=== PATIENT | female | born 1975 | race Caucasian/White ===

== ENCOUNTER 2016-08-12 21:04 | Emergency (ER) | payer OTHER ==
[2016-08-12 21:36] LABS: ABSOLUTE BASOPHIL COUNT 0 /CUMM (0.0-0.2); ABSOLUTE EOSINOPHIL COUNT 0.3 /CUMM (0.0-0.7); ABSOLUTE GRANULOCYTE CT 5.7 /CUMM (1.4-6.5); ABSOLUTE LYMPH COUNT 3.3 /CUMM (1.2-3.4); ABSOLUTE MONOCYTE COUNT 0.6 /CUMM (0.10-0.60); BASOPHIL % 0.3 % (0.0-2.0); EOSINOPHIL % 3.3 % (0-5); GRANULOCYTE % 56.9 % (42.2-75.2); HEMATOCRIT 35.2 % (37-47); MEAN CORPUSCULAR HGB 29.2 PG (27.0-31.0); MEAN CORPUSCULAR VOLUME 85.9 FL (81.0-99.0); MEAN PLATELET VOLUME 7.9 FL (7.4-10.4); PLATELET COUNT 225 /CUMM (130-400); RBC DISTRIBUTION WIDTH 12.7 % (11.5-14.5)
--- NOTE | 2016-08-12 22:02 | ED CARDIAC/CP/PALPITATIONS ---
See Addendum History of Present Illness General Chief Complaint: Chest Pain Stated Complaint: CHEST HEAVINESS, INDIGESTION, NECK PAIN Source: patient Exam Limitations: no limitations Vital Signs & Intake/Output Vital Signs & Intake/Output Vital Signs Date Time Temp Pulse Resp B/P Pulse O2 O2 Flow FiO2 Ox Delivery Rate 08/12 2321 97.5 58 12 106/68 100 Room Air 08/12 2200 80 110/74 08/12 2130 Room Air 08/12 2112 110 22 153/107 ED Intake and Output 08/13 0000 08/12 1200 Intake Total 0 Output Total Balance 0 Intake, Oral 0 Patient 130 lb Weight Allergies Coded Allergies: No Known Allergies (08/12/16) Reconcile Medications No Known Home Medications Triage Note: PER PT CP ON AND OFF X 3 DAYS PER PT TODAY SINCE 1900 TRIED TO TAKE A WARM SHOWER BUT HR WAS 140 PT REPORTS PAIN TO CHEST NECK RT SIDE INTO BACK AND DOWN BOTH LEGS AND BILAT ARMS DENIES BCP OR SMOKING LMP 10 DAYS AGO Triage Nurses Notes Reviewed? yes Onset: Gradual Duration: waxing and waning Quality/Severity: moderate Location: substernal Radiation: jaw, neck Activities at Onset: none Prior Chest Pain/Card Workup: no prior cardiac workup : No Patient currently breastfeeds: No HPI: Patient is a 41-year-old female with an unremarkable past medical history who presents emergency room stating that for the past 3 days patient has had concerning waxing and waning symptoms of indigestion chest heaviness lightheaded sensation and radiation of pain and paresthesia to her jaw and bilateral arms. Patient also had associated symptoms of shortness of breath. Patient did have similar symptoms approximately 9 months ago followed up with primary care doctor with unremarkable findings and EKG findings. Patient states that the symptoms have waxed and waned and states that minimal activity does make worse. Denies any history of oral contraceptive use PE or DVT, recent travel recent surgery hemoptysis leg swelling. Patient has not taken any medications for symptoms. Denies any fever, chills, nausea vomiting. Denies any illicit drug use denies any significant family history of cardiac before the age of 50. Denies any smoking tobacco or alcohol use (VERONICA MAGDALENO,SHELBY) Past History Travel History Traveled to [place] past 21 day No Medical History Any Pertinent Medical History? none Neurological: NONE EENT: NONE Cardiovascular: NONE Respiratory: NONE Gastrointestinal: NONE Hepatic: NONE Renal: NONE Musculoskeletal: NONE Psychiatric: NONE Endocrine: NONE Surgical History Surgical History: non-contributory Psychosocial History What is your primary language Kazakh Tobacco Use: Never used Family History Hx Contributory? No (SHELBY NATH) Review of Systems Review of Systems Constitutional: Reports: no symptoms. EENTM: Reports: no symptoms. Respiratory: Reports: see HPI, short of breath. Cardiovascular: Reports: see HPI, chest pain. GI: Reports: no symptoms. Genitourinary: Reports: no symptoms. Musculoskeletal: Reports: no symptoms. Skin: Reports: no symptoms. Neurological/Psychological: Reports: see HPI, paresthesia. Hematologic/Endocrine: Reports: no symptoms. Immunologic/Allergic: Reports: no symptoms. All Other Systems: Reviewed and Negative (SHELBY NATH) Physical Exam Physical Exam General Appearance: well developed/nourished, no apparent distress, alert Cardiovascular: regular rate/rhythm Comments: Well-developed well-nourished person in no acute distress HEENT: Normal EENT exam, extraocular motion intact, no nystagmus. Pupils equally round and reactive to light and accommodation. Nose is atraumatic. External auditory canal and Tympanic membranes clear. Pharynx normal. No swelling or edema. Neck: Supple, no lymphadenopathy, normal range of motion without pain or tenderness Back: Nontender, no CVA tenderness. Cardiovascular: Regular rate and rhythms no murmurs rubs or gallops, normal JVP Respiratory: Chest nontender. No respiratory distress.breath sounds clear to auscultation bilaterally Abdomen: Soft, nontender nondistended, no appreciable organomegaly. Normal bowel sounds. No ascites Extremity: No edema, no calf tenderness to palpation, normal and equal pulses. Neuro: Alert oriented x3, motor sensory normal, cranial nerves II through XII grossly intact. Skin: No appreciable rash on exposed skin, skin is warm and dry. Psych: Mood and affect is normal, memory and judgment is normal. Core Measures ACS in differential dx? Yes Severe Sepsis Present: No Septic Shock Present: No (SHELBY NATH) Progress Differential Diagnosis: AMI, aortic dissection, atrial fibrillation, cholecystitis, CHF/pulm edema, costochondritis, hyperkalemia, hypovolemia, hyperthyroid, hyperventilation, intracranial hemorrhage, musculoskeletal pain, myocarditis, pancreatitis, pericarditis, pneumonia, pneumothorax, PSVT, pulmonary embolism, PUD/GERD, PVCs/PACs, respiratory failure, rib fracture, sepsis, unstable angina, V-fib/V-Tach, WPW syndrome Plan of Care: Orders Procedure Date/time Status TROPONIN LEVEL 08/13 129 Active EKG 08/13 129 Active TROPONIN LEVEL 08/12 2105 Complete HUMAN BETA HCG SCREEN 08/12 2105 Complete D-DIMER 08/12 2105 Complete COMPREHENSIVE METABOLIC PANEL 08/12 2105 Complete CBC WITHOUT DIFFERENTIAL 08/12 2105 Complete EKG 08/12 2104 Active Laboratory Tests 08/13/16 0140: Troponin I Pending 08/12/162124: Anion Gap 11, Estimated GFR > 60, BUN/Creatinine Ratio 18.6, Glucose 93, Calcium 9.2, Total Bilirubin 0.4, AST 14, ALT 17, Alkaline Phosphatase 39, Troponin I < 0.01, Total Protein 7.2, Albumin 4.2, Globulin 3.0, Albumin/Globulin Ratio 1.4, Total Beta HCG NEGATIVE, D-Dimer 444 H, CBC w Diff NO MAN DIFF REQ, RBC 4.10 L , MCV 85.9, MCH 29.2, RDW 12.7, MPV 7.9, Gran % 56.9, Lymphocytes % 33.2, Monocytes % 6.3, Eosinophils % 3.3, Basophils % 0.3, Absolute Granulocytes 5.7, Absolute Lymphocytes 3.3, Absolute Monocytes 0.6, Absolute Eosinophils 0.3, Absolute Basophils 0, PUBS MCHC 34.0 Upon initial examination patient was in no apparent distress however patient did have concerning cardiovascular symptoms. First set of cardiac enzymes was unremarkable on air sampling and monitoring noted to be normal sinus rhythm patient declined any medications when offered. Patient had an unremarkable EKG and d- dimer was elevated and which patient required CT scan angiogram showing no concern for pulmonary embolism. Patient will require second set of cardiac enzymes. Discussed disposition plan with patient and family and they agree. I' ll discuss handoff with Dr. Valiente. (SHELBY NATH) Diagnostic Imaging: Viewed by Me: Radiology Read, CT Scan. Radiology Impression: no acute abnormality Initial ED EKG: SINUS RHYTHM NOTED AT 97 BPM Hand-Off Endorsed To: JUAN LUIS VALIENTE MD Endorsed Time: 098 Pending: labs Comments: PATIENT: AVERY LEONARD PRESENT AGE: 41 PATIENT ACCOUNT NO: [id number] : 76 LOCATION: [facility] ORDERING PHYSICIAN: SHELBY MAGDALENO SERVICE DATE: 08/12/16 EXAM TYPE: CAT - CTA CHEST-PULMONARY EMBOLISM EXAMINATION: CT ANGIOGRAM OF THE CHEST WITH AND WITHOUT CONTRAST (CT PULMONARY ANGIOGRAM FOR PE) CLINICAL INFORMATION: Elevated d-dimer. COMPARISON: No pertinent prior studies are available for comparison. TECHNIQUE: Prior to contrast administration, noncontrast localization images were obtained. Subsequently, multidetector volumetric imaging was performed from the thoracic inlet to below the diaphragms following the administration of 75 mL Optiray 320 intravenous contrast. No contrast reaction reported Sagittal, coronal, and MIP oblique sagittal reformatted images were obtained on the CT workstation, uploaded to PACS, and reviewed. Total exam dose-length product 226 mGy-cm FINDINGS: QUALITY OF STUDY/CONTRAST BOLUS: Satisfactory. PULMONARY ARTERIES: No central or segmental pulmonary emboli. THORACIC AORTA: No aneurysm or dissection. LUNG: A calcified granuloma is present within the medial aspect of the left upper lobe. No suspicious pulmonary nodules are identified. No consolidation, pneumothorax, or emphysema. No bronchiectasis. PLEURA: No pleural effusion or pneumothorax. MEDIASTINUM: Normal heart size. No pericardial effusion. No hilar or mediastinal lymphadenopathy. No evidence of septal bowing or right heart strain. Thymic tissue is present anteriorly. CHEST WALL/AXILLA: No axillary or internal mammary lymphadenopathy. OSSEOUS STRUCTURES: There is mild degenerative spondylosis in the thoracic spine with minimal right convex thoracic curvature. No fracture or malalignment. No osseous lesions are identified. UPPER ABDOMEN: Unremarkable. No reflux of contrast into the hepatic veins to suggest elevated right heart pressures. IMPRESSION: 1. No acute pulmonary findings. No evidence of pulmonary venous thromboembolism. 2. 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 VTE: negative PATIENT: AVERY LEONARD PRESENT AGE: 41 PATIENT ACCOUNT NO: [id number] : 76 LOCATION: [facility] ORDERING PHYSICIAN: JUAN LUIS VALIENTE MD SERVICE DATE: 08/12/16 EXAM TYPE: RAD - XRY-PORTABLE CHEST XRAY EXAMINATION: XR PORTABLE CHEST CLINICAL INFORMATION: Chest pain. COMPARISON: None. TECHNIQUE: Portable view of the chest was obtained. FINDINGS: The lungs are well-expanded and clear without focal airspace consolidation. No pleural effusions or pneumothoraces are identified. Cardiomediastinal contours are within normal limits. Soft tissues are unremarkable. No acute osseous abnormality is identified. IMPRESSION: No acute cardiopulmonary abnormality. (SHELBY NATH) Departure Departure Disposition: HOME OR SELF CARE Condition: Stable Referrals: ROM LARA,JESSICA Mckenna (PCP/Family) Referred to [facility] as new patient No Additional Instructions: As discussed first thing tomorrow please follow up and establish Dr. Milan for cardiology evaluation. If symptoms worsen or if you develop a new concerning symptom return to the emergency room . Departure Forms: Customer Survey General Discharge Information Prescriptions: Current Visit Scripts No Known Home Medications (SHELBY NATH) Departure Clinical Impression Primary Impression: Chest pain Secondary Impressions: Shortness of breath PA/FOOD AND BEVERAGE MANAGER Co-Sign Statement Statement: ED Attending supervision documentation- [] I saw and evaluated the patient. I have also reviewed all the pertinent lab results and diagnostic results. I agree with the findings and the plan of care as documented in the PA's/FOOD AND BEVERAGE MANAGER's documentation. [x] I have reviewed the ED Record and agree with the PA's/FOOD AND BEVERAGE MANAGER's documentation. [] Additions or exceptions (if any) to the PAs/FOOD AND BEVERAGE MANAGER's note and plan are summarized below: [] (LARISA LARA,JUAN LUIS Smith) Critical Care Note Critical Care Note Critical Care Time: non-applicable (SHELBY NATH)
--- NOTE | 2016-08-12 22:45 | RADIOLOGY REPORT ---
EXAMINATION: XR PORTABLE CHEST CLINICAL INFORMATION: Chest pain. COMPARISON: None. TECHNIQUE: Portable view of the chest was obtained. FINDINGS: The lungs are well-expanded and clear without focal airspace consolidation. No pleural effusions or pneumothoraces are identified. Cardiomediastinal contours are within normal limits. Soft tissues are unremarkable. No acute osseous abnormality is identified. IMPRESSION: No acute cardiopulmonary abnormality.
--- NOTE | 2016-08-12 22:50 | CT SCAN REPORT ---
EXAMINATION: CT ANGIOGRAM OF THE CHEST WITH AND WITHOUT CONTRAST (CT PULMONARY ANGIOGRAM FOR PE) CLINICAL INFORMATION: Elevated d-dimer. COMPARISON: No pertinent prior studies are available for comparison. TECHNIQUE: Prior to contrast administration, noncontrast localization images were obtained. Subsequently, multidetector volumetric imaging was performed from the thoracic inlet to below the diaphragms following the administration of 75 mL Optiray 320 intravenous contrast. No contrast reaction reported Sagittal, coronal, and MIP oblique sagittal reformatted images were obtained on the CT workstation, uploaded to PACS, and reviewed. Total exam dose-length product 226 mGy-cm FINDINGS: QUALITY OF STUDY/CONTRAST BOLUS: Satisfactory. PULMONARY ARTERIES: No central or segmental pulmonary emboli. THORACIC AORTA: No aneurysm or dissection. LUNG: A calcified granuloma is present within the medial aspect of the left upper lobe. No suspicious pulmonary nodules are identified. No consolidation, pneumothorax, or emphysema. No bronchiectasis. PLEURA: No pleural effusion or pneumothorax. MEDIASTINUM: Normal heart size. No pericardial effusion. No hilar or mediastinal lymphadenopathy. No evidence of septal bowing or right heart strain. Thymic tissue is present anteriorly. CHEST WALL/AXILLA: No axillary or internal mammary lymphadenopathy. OSSEOUS STRUCTURES: There is mild degenerative spondylosis in the thoracic spine with minimal right convex thoracic curvature. No fracture or malalignment. No osseous lesions are identified. UPPER ABDOMEN: Unremarkable. No reflux of contrast into the hepatic veins to suggest elevated right heart pressures. IMPRESSION: 1. No acute pulmonary findings. No evidence of pulmonary venous thromboembolism. 2. 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 VTE: negative
[2016-08-13 02:33] VITALS: BP 111/74
[2016-08-13] MEDS ORDERED: IBUPROFEN800 M1 PO (02:43)
== END 2016-08-13 03:04 ==
LOC: ERH 21:04
PROVIDERS: Pediatrics
DX: R07.9 Chest pain, unspecified (principal); R06.02 Shortness of breath
CPT/HCPCS: 93005; 93010; 96374; J1885

== ENCOUNTER 2018-01-14 12:09 | Emergency (ER) | payer OTHER ==
[~2018-01-14] VITALS: Ht 170.2 cm; Wt 57.2 kg
[~2018-01-14 12:09] MED LIST: IBUPROFEN800 M1 PO
[2018-01-14 12:58] LABS: ABSOLUTE BASOPHIL COUNT 0 /CUMM (0.0-0.2); ABSOLUTE EOSINOPHIL COUNT 0.1 /CUMM (0.0-0.7); ABSOLUTE GRANULOCYTE CT 6.3 /CUMM (1.4-6.5); ABSOLUTE LYMPH COUNT 1.1 /CUMM (1.2-3.4); ABSOLUTE MONOCYTE COUNT 0.3 /CUMM (0.10-0.60); BASOPHIL % 0 % (0.0-2.0); EOSINOPHIL % 1.1 % (0-5); GRANULOCYTE % 80.5 % (42.2-75.2); HEMATOCRIT 38.1 % (37-47); MEAN CORPUSCULAR HGB 29.4 PG (27.0-31.0); MEAN CORPUSCULAR HGB CONC 34.2 G/DL (33.0-37.0); MEAN PLATELET VOLUME 8.2 FL (7.4-10.4); PLATELET COUNT 246 /CUMM (130-400); RBC DISTRIBUTION WIDTH 13.3 % (11.5-14.5); RED BLOOD CELL CT 4.44 /CUMM (4.20-5.40); WHITE BLOOD CELL COUNT 7.8 /CUMM (4.8-10.8)
--- NOTE | 2018-01-14 13:03 | ED GENERAL ADULT ---
History of Present Illness General Chief Complaint: General Adult Stated Complaint: JAW/NECK PAIN, HEART RACING AT TIMES X3DAYS Source: patient, family Exam Limitations: no limitations Vital Signs & Intake/Output Vital Signs & Intake/Output Vital Signs Date Time Temp Pulse Resp B/P B/P Pulse O2 O2 Flow FiO2 Mean Ox Delivery Rate 01/14 1500 98.0 64 18 122/78 98 Room Air 01/14 1223 97.5 98 15 127/89 97 Room Air Room Air Allergies Coded Allergies: No Known Allergies (01/14/18) Reconcile Medications No Known Home Medications Triage Note: PT TO ED FOR C/C OF L JAW PAIN THAT RADIATES TO L SIDE OF NECK AND INTO UPPER BACK IN BETWEEN SHOULDER BLADES. SINCE FRIDAY PT HAS HAD FATIGUE AND FRIDAY SOME NAUSEA AND THIS MORNING. ALSO REPORTS LIGHTHEADEDNESS AND SOME INTERMITTENT SOB. DENIES SMOKING OR SIGNIFICANT FAMILY HISTORY, NOT ON CONTROL. Triage Nurses Notes Reviewed? yes : No Patient currently breastfeeds: No HPI: Patient is a 42-year-old female with no significant past medical history who presents today with chest pain. She has a family history of ITP but no ischemic cardiac disease. She had a similar episode in August 2016 at which time her ED workup including ECG and troponin were unremarkable, and she followed up with cardiology (Dr. Stern) and underwent outpatient stress testing also with negative results. In regards to this episode, she reports that 5 days ago she spirits relatively acute onset of profound fatigue, which in the days to follow developed into central chest pressure, nausea, palpitations, and then today left -sided jaw tightness and palpitations. Triage ECG is nonischemic. Past History Travel History Traveled to [place] past 21 day No Medical History Any Pertinent Medical History? see below for history Neurological: NONE EENT: NONE Cardiovascular: NONE Respiratory: NONE Gastrointestinal: NONE Hepatic: NONE Renal: NONE Musculoskeletal: NONE Psychiatric: NONE Endocrine: NONE Blood Disorders: NONE Cancer(s): NONE SENIOR SOFTWARE ARCHITECT/Reproductive: NONE Surgical History Surgical History: non-contributory Psychosocial History What is your primary language Puerto Rican Tobacco Use: Never used ETOH Use: denies use Illicit Drug Use: denies illicit drug use Family History Family History, If Any: MOTHER Relation not specified for: Idiopathic thrombocytopenic purpura Hx Contributory? Yes Review of Systems Review of Systems Constitutional: Reports: see HPI. EENTM: Reports: no symptoms. Respiratory: Reports: see HPI, short of breath. Cardiovascular: Reports: see HPI, chest pain. GI: Reports: see HPI, nausea. Genitourinary: Reports: no symptoms. Musculoskeletal: Reports: neck pain. Skin: Reports: no symptoms. Neurological/Psychological: Reports: no symptoms. Hematologic/Endocrine: Reports: no symptoms. Immunologic/Allergic: Reports: no symptoms. All Other Systems: Reviewed and Negative Physical Exam Physical Exam General Appearance: well developed/nourished, no apparent distress, alert, anxious, comfortable Comments: HEENT: Inspection of the head reveals a normocephalic cranium with no signs of trauma. Ophtho: Extraocular muscles are intact and pupils are equal and reactive to light bilaterally with no afferent pupillary defect. The sclera are noninjected , and there is no obvious discharge. Neck: The trachea is midline, there is no obvious asymmetry or mass over the thyroid, and there is no midline cervical spine tenderness Respiratory: The lungs are clear and equal to auscultation bilaterally without wheezes, rales, or rhonchi. The patient exhibits no signs of labored breathing. Cardiac: Regular rhythm and non-tachycardic without appreciable murmurs on auscultation. No obvious JVD. GI: Examination of the abdomen reveals no significant focal tenderness in any of the four quadrants. There is negative Uribe's sign, negative McBurney's point tenderness, negative Salinas sign, negative Jessica-Pineda sign, and no signs of peritonitis whatsoever on percussion or deep palpation. The skin is intact with no sign of trauma or infection. : Deferred Neuro: The patient is oriented to person, place, time, and situation, with no obvious focal motor deficits. There were no sensory deficits, and the patient exhibit purposeful movement of all 4 extremities. Cranial nerves II through XII are intact, and gait is normal. Behavioral: Calm and cooperative Dermatologic: Dermatologic examination reveals no diffuse rashes or exanthems, no petechiae, no ecchymoses, and no other signs of erythema or infection. Core Measures ACS in differential dx? Yes CVA/TIA Diagnosis: No Sepsis Present: No Sepsis Focused Exam Completed? No Progress Differential Diagnoses I considered the following diagnoses in my evaluation of the patient: Acute coronary syndrome, Prinzmetal angina, unstable angina, stable angina, pneumonia, pleurisy, upper respiratory infection, among multiple other possibilities. Plan of Care: Orders Procedure Date/time Status TROPONIN LEVEL 01/14 1231 Complete COMPREHENSIVE METABOLIC PANEL 01/14 1231 Complete CBC WITHOUT DIFFERENTIAL 01/14 1231 Complete EKG 01/14 1210 Active Laboratory Tests 01/14/18 1247: Anion Gap 13, Estimated GFR > 60, BUN/Creatinine Ratio 12.9, Glucose 87, Calcium 9.5, Total Bilirubin 0.5, AST 16, ALT 24, Alkaline Phosphatase 47, Troponin I < 0.01, Total Protein 7.0, Albumin 4.2, Globulin 2.8, Albumin/Globulin Ratio 1.5, CBC w Diff NO MAN DIFF REQ, RBC 4.44, MCV 86.0, MCH 29.4, MCHC 34.2, RDW 13.3, MPV 8.2, Gran % 80.5 H, Lymphocytes % 14.0 L, Monocytes % 4.4, Eosinophils % 1.1, Basophils % 0, Absolute Granulocytes 6.3, Absolute Lymphocytes 1.1 L, Absolute Monocytes 0.3, Absolute Eosinophils 0.1, Absolute Basophils 0 CXR Impression: no acute abnormality, no infiltrates, normal size heart, normal mediastinum Initial ED EKG: ECG performed at 1237 hrs., read at 1240 hrs. by me, normal sinus rhythm with rate of 81 bpm, normal axis, IL/QRS/QTc intervals normal, T waves normal, no ST segment changes, no STEMI. As compared to prior study performed on 08/13/2016, there are no new ischemic changes. Comments: Patient presented today for atypical chest discomfort. This was associated with left ear/jaw pain, which initially was concerning for sequelae from ACS. However, the patient also reports sinus congestion and states that the discomfort does feel to be in the area of her eustachian tube and feels that her left ear needs to pop. She has had the pain for several hours, and her workup in the ED found that her troponin was negative, and her ECG was unremarkable. Her chest x-ray was also clear. I offered hospitalization for cardiac observation albeit for unlikely acute coronary syndrome. I also offered a repeat troponin at 3 hours to bring the patient's risk from between 1 and 3% down to less than 1% in accordance with the HEART pathway. She declined my offer and chose to be discharged home as she is feeling improved and reassured. She will follow-up with Dr. Stern from cardiology for reassessment, and she understands the need to return to the emergency department for any new or worsening symptoms. Departure Departure Time of Disposition: 1538 Disposition: HOME OR SELF CARE Condition: Stable Clinical Impression Primary Impression: Chest pain Qualifiers: Chest pain type: unspecified Qualified Code: R07.9 - Chest pain, unspecified Referrals: Christian LARA,Ziyad Mckenna (PCP/Family) Additional Instructions: Please make an appointment to follow-up with Dr. Stern from cardiology for reassessment. As discussed, return to the emergency department immediately for any new or worsening symptoms that concern you. Your blood work, EKG, and chest x-ray were normal in the emergency department today, but this of course does not represent a full cardiac rule out. It is extremely important that you follow-up with her primary physician and with Dr. Stern for further concerns. Your platelets today were 246. Departure Forms: Customer Survey General Discharge Information Prescriptions: Current Visit Scripts No Known Home Medications Critical Care Note Critical Care Note Critical Care Time: non-applicable
--- NOTE | 2018-01-14 13:27 | RADIOLOGY REPORT ---
EXAMINATION: CHEST 2 VIEWS CLINICAL INFORMATION: Chest pain. COMPARISON: 08/12/2016. TECHNIQUE: PA and lateral views of the chest were obtained. FINDINGS: The cardiac silhouette is not enlarged. The mediastinal and hilar contours are unremarkable. There are neither pleural effusions nor pneumothoraces. There are no consolidations. The osseous structures are stable with mild rightward curvature to the lower thoracic spine. IMPRESSION: No evidence for acute disease.
[2018-01-14 15:00] VITALS: BP 122/78
== END 2018-01-14 15:52 ==
LOC: ERH 12:09
PROVIDERS: Physician Assistant
DX: R07.89 Other chest pain (principal)
CPT/HCPCS: 71046; 93005; 93010